=== PATIENT | female | born 1980 | race Caucasian/White ===

== ENCOUNTER 2018-12-20 09:19 | Emergency (ER) | payer OTHER ==
[~2018-12-20] VITALS: Ht 170.2 cm; Wt 65.3 kg
[~2018-12-20 09:19] MED LIST: AMOXICILLIN500 M1 PO; FLONASE 0.05%50 MCG NS; PERCOCET 5-3251 EACH PO
[2018-12-20] MEDS ORDERED: TOBRAMYCIN SULFA5 ML OPHTHALMIC (10:04)
[2018-12-20] MEDS ORDERED: HYDROCODON-ACE1 EAC7 PO (10:04)
[2018-12-20 10:29] VITALS: BP 126/81
== END 2018-12-20 10:30 | disposition home or self-care (01) ==
LOC: M.ERS 09:19
DX: S05.01XA Injury of conjunctiva and corneal abrasion without foreign body, right eye, initial encounter (principal); W50.0XXA Accidental hit or strike by another person, initial encounter; Y93.89 Activity, other specified; Y92.89 Other specified places as the place of occurrence of the external cause; Y99.8 Other external cause status

== ENCOUNTER 2018-12-22 23:05 | Emergency (ER) | payer OTHER ==
[~2018-12-22] VITALS: Ht 170.2 cm; Wt 65.3 kg
[~2018-12-22 23:05] MED LIST changes: +HYDROCODON-ACE1 EAC7 PO; +TOBRAMYCIN SULFA5 ML OPHTHALMIC
[2018-12-22 23:55] VITALS: BP 130/89
== END 2018-12-22 23:55 | disposition home or self-care (01) ==
LOC: M.ERS 23:05
DX: S05.01XD Injury of conjunctiva and corneal abrasion without foreign body, right eye, subsequent encounter (principal); X58.XXXD Exposure to other specified factors, subsequent encounter